=== PATIENT | male | born 1940 | race Caucasian/White ===

== ENCOUNTER 2018-11-05 06:50 | Day surgery (SDC) | payer MEDICARE, BC, OTHER ==
[2018-11-04 09:05] LABS: BASOPHILS 0.7 % (0-2); EOSINOPHILS 3.9 % (0-7); HEMOGLOBIN 14.1 g/dL (13.5-17.5); IMMATURE GRANULOCYTES 0.1 % (0-5); LYMPHOCYTES 30.7 % (15-50); MCH 33.6 pg (26.0-34.0); MCHC 33.6 g/dL (31.0-37.0); MEAN PLATELET VOLUME 9.5 fL (7.4-10.4); MONOCYTES 10.1 % (2-11); NEUTROPHILS 54.5 % (40-80); PLATELET COUNT 197 10x3/uL (130-400); RDW 13.3 % (11.5-14.5); WBC 7.1 10x3/uL (4.8-10.8)
[2018-11-04 09:17] LABS: CALC OSMOLALITY 282 mosm/kg (275-300); CALCIUM 8.8 mg/dL (8.5-10.1); CARBON DIOXIDE 27.9 mmol/L (21.0-32.0); CHLORIDE - SERUM 105 mmol/L (98-107); CREATININE - SERUM 0.9 mg/dL (0.6-1.3); GLUCOSE 95 mg/dL (74-106); POTASSIUM - SERUM 4.1 mmol/L (3.5-5.1); SODIUM 141 mmol/L (136-145); UREA NITROGEN 17 mg/dL (7-18); eGFR NON AFRICAN AMERICAN 87 mL/min (90-120)
[~2018-11-05] VITALS: Ht 172.7 cm; Wt 100.7 kg
--- NOTE | ~2018-11-05 | OP ---
PATIENT NAME: FRANCI ELLISON JR MEDICAL RECORD: [id number] :42 LOCATION:D.OPS ADMISSION DATE: SURGEON: CARMELITA GA MD DATE OF OPERATION: 11/05/2018 PREOPERATIVE DIAGNOSES: 1. Recurrent ventral incisional hernia. 2. Hypertension. 3. Hypercholesterolemia. POSTOPERATIVE DIAGNOSES: 1. Recurrent ventral incisional hernia. 2. Hypertension. 3. Hypercholesterolemia. PROCEDURE: Ventral hernia repair with 4.6 cm Ventrio mesh. SURGEON: Carmelita Ga MD REPORT OF PROCEDURE: The patient's abdomen was prepped and draped in sterile fashion. A semicircular incision was made on the inferior aspect of the umbilicus. Electrocautery was used to dissect through the subcutaneous tissue and scar tissue until we encountered the base of the umbilicus. We elevated the umbilicus and then came across a hernia sac. This hernia sac was fat containing. We completely excised the hernia sac down to the fascial edges. The fatty tissue within the hernia was easily reduced back into the abdominal cavity. The hernia defect was approximately 2 cm in greatest diameter. The fascia was cleared off on its top side with electrocautery and on his bottom side using blunt dissection. We inserted a 4.6 cm Ventrio mesh in an underlay fashion and sutured it down on all 4 sides using interrupted 0 Prolenes. The wound was irrigated out with normal saline and care was taken to assure there was no sign of any bleeding. We then closed the fascia over top of the mesh with a 0 Vicryl in a running fashion. The umbilicus was tacked down to the fascia using interrupted 3-0 Vicryl. We reapproximated the subcutaneous tissues with multiple interrupted 3-0 Vicryls and the skin was closed with running subcutaneous 5-0 Monocryl. A total of 10 mL of 0.25% Marcaine with epinephrine was infused into the surrounding tissues and the wound was dressed appropriately. COMPLICATIONS: None. CONDITION: Stable. ANESTHESIA: General endotracheal and local. BLOOD LOSS: Minimal. TRANSINT:[id number] Voice Confirmation ID: [id number] DOCUMENT ID: [id number] OPERATIVE REPORT [id number] FRANCI ELLISON CARMELITA MARVIN MD CC: JOE [id number] DICTATION DATE: 11/05/18 1159 ASSISTANT PROFESSOR OF HISTORY: 11/05/18 1528 [facility] [address] [place] [address]
[~2018-11-05 06:50] MED LIST: BAYER CHEWABLE81 MG PO; CLARITIN 10 MG10 MG PO; CRESTOR20 MG PO; NIACIN250 M1 PO; NORVASC5 MG PO; SINGULAIR10 MG PO; TENORMIN25 MG PO
[2018-11-05 08:31] VITALS: BP 124/76; Ht 172.7 cm; Wt 100.7 kg
[2018-11-05] MEDS ORDERED: NORCO 10-325 TA1 TAB PO (11:52)
--- NOTE | 2018-11-05 13:25 | NUR ---
PATIENT AMBULATES TO BATHROOM AND VOIDS LARGE AMOUNT IN TOILET WITHOUT DIFFICULTY. LEFT FOREARM PIV DC'D WITH TIP INTACT
--- NOTE | 2018-11-05 13:40 | NUR ---
DISCHARGE INSTRUCTIONS REVIEWED WITH PATIETN AND SPOUSE, PATIENT DISCHARGED HOME VIA WHEELCHAIR TO PRIVATE VEHICLE WITH SPOUSE
== END 2018-11-05 13:40 | disposition home or self-care (01) ==
LOC: D.OPS 06:50 → D.PAN 11:15 → D.OPS 11:15
PROVIDERS: Surgery
DX: K43.2 Incisional hernia without obstruction or gangrene (principal); I10 Essential (primary) hypertension; E78.5 Hyperlipidemia, unspecified

== ENCOUNTER → 2020-03-14 16:39 | Outpatient (CLI) | payer MEDICARE, BC, OTHER ==
[2018-11-05 08:31] VITALS: BMI 33.8
[~2020-03-14 16:39] MED LIST changes: +NORCO 10-325 TA1 TAB PO
== END | disposition home or self-care (01) ==
LOC: D.LABREF 16:39
PROVIDERS: ATTEND Orthopaedic Surgery
DX: M19.012 Primary osteoarthritis, left shoulder (principal)

== ENCOUNTER 2020-03-21 12:33 | Inpatient (IN) | payer MEDICARE, BC, OTHER ==
[~2020-03-21] VITALS: Ht 172.7 cm; Wt 100.0 kg
[2020-03-22 09:42] LABS: HEMATOCRIT 43.6 % (42.0-54.0); HEMOGLOBIN 14.3 g/dL (13.5-17.5); MCH 31.8 pg (26.0-34.0); MCHC 32.8 g/dL (31.0-37.0); MCV 97.1 fL (80.0-100.0); MEAN PLATELET VOLUME 8.8 fL (7.4-10.4); PLATELET COUNT 221 10x3/uL (130-400); RBC 4.49 10x6/uL (4.20-6.10); RDW 12.6 % (11.5-14.5); WBC 5.6 10x3/uL (4.8-10.8)
[2020-03-22 09:44] LABS: CALCIUM 8.8 mg/dL (8.5-10.1); CARBON DIOXIDE 28.3 mmol/L (21.0-32.0); CREATININE - SERUM 1.1 mg/dL (0.6-1.3); POTASSIUM - SERUM 4.3 mmol/L (3.5-5.1)
[2020-03-22 09:51] LABS: APTT 30.4 SECONDS (22.8-39.4); INR 1.01 (0.85-1.17); PROTIME 13.3 SECONDS (11.6-15.0)
[2020-03-22 11:35] LABS: BILIRUBIN NEGATIVE (NEGATIVE); GLUCOSE NEGATIVE (NEGATIVE); KETONE NEGATIVE (NEGATIVE); NITRITE NEGATIVE (NEGATIVE); SPECIFIC GRAVITY 1.015 (1.005-1.020); UROBILINOGEN NORMAL (NORMAL)
[2020-03-26] VITALS (10 sets, daily range): BP systolic 111–134; BP diastolic 60–78; Ht 172.7 cm; Wt 100.0 kg
--- NOTE | 2020-03-26 19:22 | NUR ---
PATIENT SITTING UP IN THE CHAIR AND DENIES NEEDS AT THIS TIME. PATIENT ALSO DENIES PAIN AT THIS TIME. BED IN LOWEST POSITION AND CALL LIGHT WITHIN REACH. ENCOURAGED THE PATIENT TO CALL IF HE HAS NEEDS. WILL CONTINUE TO MONITOR.
[2020-03-27 00:07] VITALS: BP 126/74
[2020-03-27 03:48] VITALS: BP 129/69
[2020-03-27 06:34] LABS: HEMATOCRIT 39.9 % (42.0-54.0); HEMOGLOBIN 13.2 g/dL (13.5-17.5); MCH 32.8 pg (26.0-34.0); MCHC 33.1 g/dL (31.0-37.0); MCV 99.3 fL (80.0-100.0); MEAN PLATELET VOLUME 10.2 fL (7.4-10.4); RBC 4.02 10x6/uL (4.20-6.10); RDW 12.6 % (11.5-14.5); WBC 8.9 10x3/uL (4.8-10.8)
[2020-03-27 08:36] VITALS: BP 146/75
--- NOTE | 2020-03-27 08:56 | NUR ---
PATIENT ASSESSMENT COMPLETE AT THIS TIME. PATIENT SITTING UP IN CHAIR WITH IV INTACT. NO COMPLAINTS OR SIGNS OF DISTRESS. DRESSING TO LEFT SHOULDER CLEAN AND DRY. SLING ON. VS STABLE. GAVE TORADOL FOR PAIN ALONG WITH SCHEDULED MEDS. CALL LIGHT WITHIN REACH. WILL CONTINUE TO MONITOR.
[2020-03-27] MEDS ORDERED: PERCOCET 10-321 EAC1 PO (09:28)
--- NOTE | 2020-03-27 11:00 | NUR ---
PATIENT RECIEVED DC INSTRUCTIONS. IV REMOVED WITH CATH TIP INTACT. DRESSING TO RUE CHANGED ORDERED. INCISION CDI. NO SIGNS OF INFECTION. FAMILY AT SIDE. CALL LIGHT WITHIN REACH.
--- NOTE | 2020-03-27 11:18 | NUR ---
ESCORTED PATIENT DOWN TO PRIVATE VEHICE WITH PERSONAL BELONGINGS AT THIS TIME.
--- NOTE | 2020-03-27 12:56 | OP ---
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 PROCEDURE: Left total shoulder arthroplasty. SURGEON: Sofie Lee MD ANESTHESIA: General. INTRAOPERATIVE COMPLICATIONS: None. SUMMARY OF PATHOLOGIC FINDINGS: The patient indeed had severe osteoarthritis of the left glenohumeral joint. IMPLANTS USED: Tornier Ascend Flex shoulder system with Aequalis Perform glenoid. OPERATIVE SUMMARY IN DETAIL: After obtaining the appropriate preoperative orthopedic surgery consents as well as anesthetic consultation, evaluation and clearance, the patient was brought to the operating room and placed on the operating table in supine position. After adequate general laryngeal mask airway was administered, the patient was placed in a beach chair position. All pressure points were well padded to include down leg peroneal pad as well as axillary roll and bilateral lower extremities. He was held firmly to the operating room table using the vacuum pack suction system. Left upper extremity were then prepped and draped in routine sterile fashion. The arm was held in the Trimano arm holding device. At this point, appropriate timeout was taken and agreed upon by all given the patient's unique identifiers age, allergies, and name. Having completed this deltopectoral incision was created, taken down to the level of the cephalic vein which was identified and protected throughout the case. Deltopectoral interval was then opened. Clavipectoral fascia was incised. The deltoid was retracted laterally using the brown retractor. Conjoined tendon was retracted gently medially with good exposure. Subscapularis was taken down in a peel and the biceps tendon was tied and cut for later tenodesis. At this point, the shoulder was then dislocated into the incision. Osteophytes were removed from the anterior and inferior aspect of the shoulder for identification of the two humeral head. Humeral head cut was made using humeral cutting guide for the Flex system. Subsequent reaming and broaching were done for a size 8 press fit. Size [address] while the humeral head protection guide was placed onto the broach. The glenoid was then approached. Circumferential labrectomy was followed by the appropriate sizing for a size large. After reaming center hole was created along with the superior and inferior peg holes. At this point, the wound was copiously irrigated with epinephrine laden water and dried and the size large Aequalis Perform peg polyethylene glenoid was put into place with cement and this was tamped into place for good fit and fill. All excess cement was removed. Having completed this, attention was returned to the proximal humerus. The previously placed broach and cut protection guide was removed. The size 8 stem was placed with a size 52 x 19 maximum offset for posterior superior coverage. This was tamped OPERATIVE REPORT [id number] FRANCI ELLISON JR into place again with good fit and fill. The shoulder was relocated and found to be stable in all planes with the appropriate posterior translation. At this point, a gram of vancomycin and a gram of tobramycin were placed into the wound after copious irrigation. At this point, the subscapularis was reapproximated to the greater tuberosity and the rotator cuff repair done by CRIS Cortez and DICK Saavedra. Skin closure was achieved with #1 Vicryl, 2-0 Vicryl, and skin shyla. Sterile dressings were applied. The patient was awakened and taken to the recovery room in stable condition. All final needle and sponge counts were correct. TRANSINT:[id number] Voice Confirmation ID: [id number] DOCUMENT ID: [id number] JESUS MELCHOR, SOFIE AVALOS at 1256 CC: [id number] DICTATION DATE: 03/26/20906 ORGANIC EXTRACTIONS TECHNICIAN: 03/26/202002 DIS IN 03/27/20 [facility] [address] [place] [address]
== END 2020-03-27 11:15 | disposition home or self-care (01) | DRG 483 ==
LOC: D.SDCHOLD 03-26 05:28 → D.M3 03-26 10:16 → D.SDCHOLD 03-26 10:45 → D.M3 03-27 11:15
PROVIDERS: ADMIT Orthopaedic Surgery; ATTEND Orthopaedic Surgery
PROC: 0RRK0JZ Replacement of Left Shoulder Joint with Synthetic Substitute, Open Approach (ICD-10-PCS; principal; 2020-03-26 07:30)
DX: M19.012 Primary osteoarthritis, left shoulder (principal); I10 Essential (primary) hypertension